=== PATIENT | male | born 1955 | race Two or more races ===

== ENCOUNTER 2020-10-26 05:45 | Day surgery (SDC) | payer OTHER ==
[~2020-10-26 05:45] MED LIST: ATORVASTATIN CA40 MG PO; CARVEDILOL12.5 M1 PO; CLONAZEPAM1 MG PO; GLIPIZIDE XL5 MG PO; HYDRALAZINE HCL25 MG PO; PLAVIX75 MG PO; PLETAL PO; TRULICITY1.5 MG/0.5; WELLBUTRIN SR150 MG PO
[2020-10-26] MEDS ORDERED: COLACE100 MG PO (08:50)
[2020-10-26] MEDS ORDERED: PERCOCET 5-3251 EACH PO (08:50)
== END 2020-10-26 13:10 | disposition home or self-care (01) ==
LOC: CIR.AMB 05:45
PROVIDERS: ATTEND Surgery
DX: C21.1 Malignant neoplasm of anal canal (principal); Z20.822 Contact with and (suspected) exposure to COVID-19